=== PATIENT | male | born 1985 | race African-American/Black ===

== ENCOUNTER 2018-07-31 22:08 | Emergency (ER) | payer MEDICAID ==
[~2018-07-31] VITALS: Ht 188 cm; Wt 95.5 kg
[2018-07-31 22:12] VITALS: Ht 188 cm; Wt 95.5 kg
[2018-07-31] MEDS ORDERED: ALBUTEROL SULF8.5 GM INH (23:36)
[2018-07-31] MEDS ORDERED: PREDNISONE50 MG PO (23:36)
[2018-07-31 23:43] VITALS: BP 148/85
== END 2018-07-31 23:43 | disposition home or self-care (01) ==
LOC: D.ER 22:08
DX: J45.909 Unspecified asthma, uncomplicated (principal); R05 Cough; R09.89 Other specified symptoms and signs involving the circulatory and respiratory systems